=== PATIENT | male | born 1985 | race Caucasian/White ===

== ENCOUNTER 2019-01-30 12:38 | Emergency (ER) | payer SELFPAY ==
[~2019-01-30] VITALS: Ht 182.9 cm; Wt 81.6 kg
[2019-01-30 12:56] VITALS: BP 102/69
[2019-01-30] MEDS ORDERED: KETOROLAC TROMETH 60MG/2ML VIAL IM ONE (15:15)
== END 2019-01-30 15:39 | disposition home or self-care (01) ==
LOC: ER 12:43
DX: S62.312A Displaced fracture of base of third metacarpal bone, right hand, initial encounter for closed fracture (principal); S16.1XXA Strain of muscle, fascia and tendon at neck level, initial encounter; S30.810A Abrasion of lower back and pelvis, initial encounter; R51 Headache; F17.210 Nicotine dependence, cigarettes, uncomplicated; Z88.1 Allergy status to other antibiotic agents; Z90.89 Acquired absence of other organs; Z88.8 Allergy status to other drugs, medicaments and biological substances; V28.4XXA Motorcycle driver injured in noncollision transport accident in traffic accident, initial encounter; Y93.89 Activity, other specified; Y99.8 Other external cause status; Y92.89 Other specified places as the place of occurrence of the external cause
CPT/HCPCS: 29125; 70450; 72125; 73110; 96372; 99284; J1885

== ENCOUNTER 2019-03-03 23:48 | Emergency (ER) | payer SELFPAY ==
[~2019-03-03] VITALS: Ht 182.9 cm; Wt 79.4 kg
[2019-03-03 23:57] VITALS: BP 126/88
[2019-03-04 02:21] LABS: Urine Bacteria MOD /hpf (None Seen); Urine Blood 2+ /uL (Negative); Urine Mucus FEW (None Seen); Urine WBC 47 /hpf (0 - 3)
[2019-03-04 02:24] LABS: Alcohol, Urine < 3.0 mg/dL (0-5); Amphetamine Screen, Urine POSITIVE (NEGATIVE); Barbiturate Scree,Urine NEGATIVE (NEGATIVE); Benzodiazephine Screen, Urine NEGATIVE (NEGATIVE); Cannabinoid Screen, Urine POSITIVE (NEGATIVE); Cocaine Screen, Urine NEGATIVE (NEGATIVE); Phencyclidine Screen, Urine NEGATIVE (NEGATIVE)
[2019-03-04 02:31] LABS: Opiate Scree,Urine NEGATIVE (NEGATIVE)
== END 2019-03-04 02:17 | disposition left against medical advice (07) ==
LOC: ER 23:51
DX: R30.0 Dysuria (principal); Z53.21 Procedure and treatment not carried out due to patient leaving prior to being seen by health care provider
CPT/HCPCS: 74176; 80307; 81001